=== PATIENT | male | born 1935 | race African-American/Black ===

== ENCOUNTER 2019-10-23 14:25 | Emergency (ER) | payer OTHER ==
[~2019-10-23] VITALS: Ht 172.7 cm; Wt 59.0 kg
[2019-10-23 22:34] VITALS: BP 149/97
== END 2019-10-23 22:35 | disposition short-term general hospital (02) ==
LOC: ER 14:25 → EDBD 14:25 → ER 22:35
DX: K94.23 Gastrostomy malfunction (principal); Z88.6 Allergy status to analgesic agent

== ENCOUNTER 2019-10-26 10:36 | Inpatient (IN) | payer OTHER ==
[~2019-10-26] VITALS: Ht 165.1 cm; Wt 62.6 kg
[2019-10-26] VITALS (31 sets, daily range): BP systolic 68–130; BP diastolic 29–50
[2019-10-26 11:18] LABS: ABSOLUTE NEUTROPHILS 4.1 thou/uL (1.4-8.2); WBC 5.3 thou/uL (4.0-11.0)
[2019-10-26 11:19] LABS: BASOPHILS 0.2 % (0.0-2.0); EOSINOPHILS 0.2 % (0.0-3.0); LYMPHOCYTES 9.9 % (24.0-44.0); MCH 30.9 pg (26.0-34.0); MCHC 31.7 g/dL (28.0-37.0); MCV 97.5 fL (80.0-100.0); MONOCYTES 11.4 % (1.0-8.0); PLATELET COUNT 302 thou/uL (150-400); POLYS 78.3 % (36.0-66.0); RBC 1.94 mil/uL (4.50-6.00); RDW 17.7 % (10.5-14.5)
[2019-10-26 11:23] LABS: HEMATOCRIT 18.9 % (42.0-52.0)
[2019-10-26 11:42] LABS: ANION GAP 4 mmol/L (7-16); BUN 21 mg/dL (7-18); CALCIUM 8.6 mg/dL (8.5-10.1); CHLORIDE 103 mmol/L (98-107); CO2 38 mmol/L (21-32); CREATININE 0.6 mg/dL (0.7-1.3); GLUCOSE 118 mg/dL (74-106); POTASSIUM 3.9 mmol/L (3.5-5.1); SODIUM 145 mmol/L (136-145)
[2019-10-26 11:50] LABS: ANISOCYTOSIS 1+; HYPOCHROMASIA 1+; POIKILOCYTOSIS SLIGHT; POLYCHROMASIA SLIGHT
[2019-10-26 11:52] LABS: ALBUMIN 2.1 g/dL (3.4-5.0); DIRECT BILIRUBIN 0.1 mg/dL (<0.1-0.2); SGOT 65 U/L (15-37); SGPT 109 U/L (30-65); TOTAL BILIRUBIN 0.3 mg/dL (0.2-1.0); TOTAL PROTEIN 6.3 g/dL (6.4-8.2); TROPONIN-I <0.06 ng/mL (<0.06)
--- NOTE | 2019-10-26 17:31 | NUR ---
PATIENT ADMITTED TO ICU THIS AFTERNOON, ON THE VENT PER TRACH. VITALS STABLE AND DENIES PAIN. PULM CONSULTED AND DR. BOSCH ON THE UNIT NOTIFIED. ADMISSION ASSESSMENT COMPLETED DOCUMENTED BEST DUE TO PATIENT BEING ABLE TO MOUTH WORDS AND WRITE ON DRY ERASE BOARD. PEG TUBE CLAMPED AND MALE EXTERNAL CATHETER IN PLACE AND PATENT. CARE PLAN ACTIVATED.
--- NOTE | 2019-10-26 21:39 | NUR ---
COVID 19 NEGATIVE TEST, THAT WAS SWABBED TODAY 10/25 AT APPROX 1600.
--- NOTE | 2019-10-26 21:51 | NUR ---
SPOKE WITH DR BOSCH REGARDING THE PATIENTS SLIGHT DISCOMFROT WITH THE VENT AND THE COVID NEGATIVE TEST.
--- NOTE | 2019-10-26 22:10 | NUR ---
HIRO ADVISED THAT IF THE PATIENT CONTINUES TO BE UNCOMFORTABLE ON THE VENT, THAT HE COULD USE CPAP MODE WITH A SETTING OF 10/8 50% FI02. MORPHINE GIVEN AT THIS TIME FOR HIS PAIN. HE IS RELAXING AT THIS TIME.
[2019-10-27] VITALS (61 sets, daily range): BP systolic 74–176; BP diastolic 30–80
[2019-10-27] MEDS ORDERED: ASA81BEC PO (01:43)
[2019-10-27] MEDS ORDERED: ENOXAPARIN30 MG/0.1 SUBQ (01:45)
[2019-10-27] MEDS ORDERED: UNICOMPLEX M TA1 TA1 PO (01:52)
[2019-10-27] MEDS ORDERED: LANSOPRAZOLE30 M2 PO (01:52)
[2019-10-27] MEDS ORDERED: CVS SENNA PLUS1 EACH PO (01:53)
[2019-10-27] MEDS ORDERED: SSD CREAM 1% 5050 GM TOP (01:55)
[2019-10-27] MEDS ORDERED: MAPAP500 MG PO (01:58)
[2019-10-27] MEDS ORDERED: VENTOLIN HFA INH8 GM INH (02:00)
--- NOTE | 2019-10-27 03:07 | NUR ---
HAS NEEDED ADDITIONAL SUCTIONING AND TRACH INNER CANNULA CHANGED TONIGHT. HE IS CURRENTLY KEEPING O2 SATS AT 97% ON FIO2 50% ON THE VENT. BLOOD PRESSURE LOW TONIGHT. 90'S OVER 30 'S AT THIS TIME. BOLUS IV FLUIDS INFUSING. HE IS AWARE OF THE PLAN FOR AN EGD TODAY SINCE HE IS COVID NEGATIVE.
[2019-10-27 04:07] LABS: MCH 32.6 pg (26.0-34.0); MCHC 32.3 g/dL (28.0-37.0); RBC 1.66 mil/uL (4.50-6.00); WBC 7.8 thou/uL (4.0-11.0)
[2019-10-27 04:20] LABS: CALCIUM 8.3 mg/dL (8.5-10.1); CREATININE 0.6 mg/dL (0.7-1.3); POTASSIUM 3.5 mmol/L (3.5-5.1); TOTAL BILIRUBIN 0.5 mg/dL (0.2-1.0); TOTAL PROTEIN 5.8 g/dL (6.4-8.2)
[2019-10-27 04:26] LABS: HEMATOCRIT 16.8 % (42.0-52.0); HEMOGLOBIN 5.4 gm/dL (14.0-18.0)
--- NOTE | 2019-10-27 07:27 | EKG ---
[facility] [place] [address] ELECTROCARDIOGRAM REPORT Name: STEPHENIE TENA Room #: 243-P ADM IN M.R.#: [id number] Admission: 10/26/19 Attend Phys: Chely Vega MD Discharge: Date of : 39 Report #: [id number] THIS REPORT FOR: cc: Wade Nettles MD, Christopher B. MD Lundgren, Craig H. MD [facility] ~ THIS REPORT FOR: //name// [facility] ED Test Date: 2019-10-26 Test Time: 11:57:58 Pat Name: STEPHENIE TENA Department: Room: [facility] Gender: M Editing Internship: [facility] : 1935 Requested By: Stephenie Justin Order Number: [id number] MD: Hitesh Duong Measurements Intervals [facility] Rate: 81 P: 60 PA: 121 QRS: -26 QRSD: 105 T: 83 QT: 371 QTc: 431 Interpretive Statements Sinus rhythm LVH with secondary repolarization abnormality Anterior ST elevation, possibly due to LVH No previous ECG available for comparison Electronically Signed On 10-27-2019 7:27:02 CDT by Hitesh Duong [email or web address] <ELECTRONICALLY SIGNED> By: Hitesh Duong MD, [facility] 10/27/19 0727 1157 1157 Hitesh Duong MD, [facility] /EPI
--- NOTE | 2019-10-27 08:53 | NUR ---
If no further bleed and tube feeds ready to start, recommend jevity 1.5 at 60ml/hr which is pts usual formula regimen. Na is 147, currently no IVF orders-consider start, defer to physician
--- NOTE | 2019-10-27 09:40 | NUR ---
WOUND CARE CONSULT; DUE TO COVID ISOLATION PROTOCOLS VIEWED WOUND PER PHOTO, DISCUSSED WOUND W/ ICU NURSE ROSAMARIA, HAD NOT SEEN WOUND YET THIS AM BUT STATES SACRAL DRSG IN PLACE, APPEARS SOME HEALING W/ WOUND? SCARING PRESENT, CENTER OF WOUND OPEN, UNABLE TO DETERMINE FROM PHOTO IF GRANULATION PRESENT? PT FROM [facility], PER OUMOU SANTOS W/ HEALIENT WOUND CARE THEY FOLLOW [facility] WOUND PTS, WILL CONSULT DR MCKINNEY/[place] HELP DESK TEAM LEADER AWARE
--- NOTE | 2019-10-27 10:44 | NUR ---
chart review. unable to visit with kamala. noted he on trach shield vent and peg tub. cm spoke with [facility] to see if he was [facility] or [facility]/skilled side. kamala was [facility]/skilled side and [facility] will need o get auth from [facility] to return to [facility]. updates to be sent and will cont following as needed for dc needs.
--- NOTE | 2019-10-27 16:15 | NUR ---
ON TRACH SHIELD @ 2 HRS. PT ANXIOUS, RESP RATE INCREASED, BP INCREASING, MAINTAINING HIS SA02. PER COLLABORATION WITH RESP THERAPY, PT PLACED BACK ON ASSIST CONTROL PER VENT. LARGE AMOUNT THICK ORAL SECRETIONS AND SMALL AMOUNT THICK SALIVA LIKE SECRETIONS PER TRACH, THEN RESTING COMFORTABLY. PC BLOOD INFUSION WELL TOLERATED. , DEVON CALLED TO INQUIRE REGARDING PT STATUS. UPDATED AND QUESTIONS ANSWERED TO HER SATISFACTION.
[2019-10-27 17:35] LABS: HEMATOCRIT 21.1 % (42.0-52.0)
--- NOTE | 2019-10-27 18:00 | NUR ---
PT DROWSY, OBTAINED BLOOD SUGAR-60. ADMINISTERED 1/2 AMP DEXTROSE PER ICU PROTOCOL. BLOOD SUGAR IMPROVED TO GREATER THAN 100. ALERT, RESTS COMFORTABLY WHEN UNDISTURBED, EASILY AWAKENED.
[2019-10-28] VITALS (32 sets, daily range): BP systolic 101–168; BP diastolic 36–109
--- NOTE | 2019-10-28 02:51 | NUR ---
PT REMAINED ON VENT ALL SHIFT. MODERATE AMOUNT OF TRACHEAL SECRETIONS SUCTIONED. PT IS ABLE TO USE YANKAUER INDEPEDENTLY FOR ORAL SUCTIONING. ORAL CARE PROVIDED. PT HAS BEEN AWAKE AND ALERT MOST OF THE NIGHT. HE IS ABLE TO MOUTH WORDS TO COMMUNICATE. HE USES CALL LIGHT APPROPRIATELY. NPO AND PEG TUBE CLAMPED FOR GI SCOPE TODAY. REPOSITIONED TO PREVENT FURTHER SKIN DAMAGE TO SCARAL WOUND. FALL PRECAUTIONS IN PLACE. PROGRESSING SLOWLY TOWARD POC GOALS. WILL CONTINUE TO MONITOR CLOSELY.
--- NOTE | 2019-10-28 07:48 | NUR ---
left message with Jessie Gambino, Infection Prevention regarding pt having covid-19 negative x 2 and requesting to remove from enhanced isolation.
--- NOTE | 2019-10-28 09:55 | NUR ---
DANIELLE PRATT STATED, "JIMMIE ([employer]) CALLED. ISOLATION IS DISCONTINUED".
[2019-10-28 10:35] LABS: ABSOLUTE NEUTROPHILS 3.8 thou/uL (1.4-8.2); BASOPHILS 0.2 % (0.0-2.0); EOSINOPHILS 0.5 % (0.0-3.0); HEMATOCRIT 24.5 % (42.0-52.0); HEMOGLOBIN 7.8 gm/dL (14.0-18.0); LYMPHOCYTES 16.2 % (24.0-44.0); MONOCYTES 9.8 % (1.0-8.0); PLATELET COUNT 369 thou/uL (150-400); POLYS 73.3 % (36.0-66.0); RBC 2.61 mil/uL (4.50-6.00); RDW 17.3 % (10.5-14.5); WBC 5.2 thou/uL (4.0-11.0)
[2019-10-28 10:38] LABS: MCV 93.7 fL (80.0-100.0)
[2019-10-28 10:43] LABS: BE(vivo) 8.1 mmol/L (-2 to +3); HCO3 35.1 mmol/L (22.0-26.0); PO2 70.5 mmHg (80.0-100.0); pH 7.347 (7.360-7.450); sO2 92.8 % (92.0-98.0)
[2019-10-28 10:44] LABS: PCO2 65.4 mmHg (35.0-45.0)
[2019-10-28 10:46] LABS: CALCIUM 8.8 mg/dL (8.5-10.1); CREATININE 0.6 mg/dL (0.7-1.3); POTASSIUM 3.2 mmol/L (3.5-5.1)
--- NOTE | 2019-10-28 10:50 | NUR ---
cpap trial results called to dr. perez. pt placed on trach shield by rt fina per dr. perez's order. tolerating well.
--- NOTE | 2019-10-28 12:06 | NUR ---
Pt remains in ICU. Spouse Ariella being updated by the bedside nurse. Dc materials planner to fax clinical updates to [facility]. They will reevaluate for SNF or LTAC bed pending his level of care at [facility]. Either way they will need new insurance auth.
--- NOTE | 2019-10-28 13:21 | NUR ---
PT IS FROM [facility] FAXED CLINICAL UPDATE SPOKE WITH DARRYN IN ADM HE RECEIVED UPDATE. DP TO FOLLOW.
--- NOTE | 2019-10-28 15:03 | NUR ---
DR. RUSH PRESENT ALONG WITH GI TEAM TO PERFORM EGD. PLACED ON ASSIST CONTROL ON VENT PER RT KENYON.
--- NOTE | 2019-10-28 15:53 | HC ---
[facility] [place] [address] CONSULTATION Name: STEPHENIE TENA Room #: 243-P ADM IN M.R.#: [id number] Admission: 10/26/19 Attend Phys: Chely Vega MD Discharge: Date of : 37 Report #: [id number] THIS REPORT FOR: cc: Wade Nettles MD,Emilio Deng MD, MD ~ CC: Wade Vega DATE OF SERVICE: 10/27/2019 WOUND CARE CONSULTATION PERSONAL PHYSICIAN: Stanley Nettles MD CHIEF COMPLAINT: Sacral decubitus ulcer. HISTORY OF PRESENT ILLNESS: This is an 83-year-old male who was admitted for GI bleed from [facility] long-term acute care. Upon admission, the patient was noted to have a large unstageable sacral decubitus ulcer, which prompted them to consult wound care for continued care while he was here in the hospital. The patient himself is a fairly poor historian, but states it appears per records that a sacral ulcer has been present for several weeks given the fact the patient is essentially bedridden from significant debility. The patient was noted at [facility] to have a hemoglobin of 5.6, which prompted them to transfer him to [facility] for further evaluation and workup. The GI group is seeing the patient as well as Pulmonary. The patient has a history of chronic respiratory failure and was currently on ventilator. Per records, the patient has no other associated wounds except for the sacral ulcer. 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 Chronic respiratory failure with trach placement. CURRENT MEDICATIONS: Multiple, I reviewed the patient's medication list. DRUG ALLERGIES: IBUPROFEN. SOCIAL HISTORY: The patient has a history of smoking. Denies alcohol use. Currently is in the long-term acute care hospital at [facility]. FAMILY HISTORY: Unobtainable given the fact the patient is sedated at this point in time on the ventilator. REVIEW OF SYSTEMS: Unobtainable given the fact the patient is sedated at this [facility] [address] [place] [address] CONSULTATION Name: STEPHENIE TENA Room #: 243-P [facility] IN M.R.#: [id number] Admission: 10/26/19 Attend Phys: Chely Vega MD Discharge: Date of : 37 Report #: [id number] point in time on the ventilator. PHYSICAL EXAMINATION: VITAL SIGNS: Temperature 37.1. Vital signs are stable. GENERAL: This is a sedated male who is currently on the ventilator, in no obvious distress. HEENT: Normocephalic, atraumatic. Mucous membranes are somewhat dry. NECK: The patient has a tracheostomy in place without excoriation. LUNGS: Slightly diminished breath sounds heard throughout with crackles. HEART: Regular. ABDOMEN: Soft, nontender. PEG tube is in place and appears to be functioning. EXTREMITIES: Evaluation of sacrococcygeal region reveals a large approximately 20 x 10 cm unstageable decubitus ulcer with eschar. There is moderate amount of serosanguineous drainage noted without significant odor. Luna wound is somewhat macerated. The patient has decreased movement of all extremities. Bilateral heels are intact. NEUROLOGIC: Cranial nerves 2-12 are grossly intact. Motor and sensory appear to be intact. LABORATORY DATA: White count 7.8, hemoglobin 5.4. BUN 17, creatinine 0.6, albumin 2.0. COVID-19 was negative. IMPRESSION: 1. Unstageable sacrococcygeal decubitus ulcer -- chronic. 2. Respiratory failure, on ventilator. 3. Dysphagia. 4. Anemia, most likely of GI origin. 5. Generalized debility with bedridden status. 6. Severe protein-calorie malnutrition, albumin 2.0. PLAN: We will start Dakin's wet to dry dressings to the sacral ulcer changes daily and p.r.n. We will put the patient on low air loss mattress, having turned every 2 hours. Pulmonary is managing the patient's respiratory status. GI is evaluating the patient for the anemia. We will try to maximize the patient's protein supplementation via his PEG tube. We will continue all other current medications at this time. I appreciate ability to consult. We will continue to follow the patient. <ELECTRONICALLY SIGNED> By: Emilio Benitez MD 10/28/19 1553 0930 1108 Emilio Benitez MD /nt
--- NOTE | 2019-10-28 23:37 | NUR ---
ASSUMED PT CARE AROUND 1900. VSS. AFEBRILE. PT HAD LARGE FORMED BOWEL MOVEMENT AT BEGINNING OF SHIFT. DRESSING CHANGED TO SACRAL WOUND. TF INFUSING VIA PEG TUBE. NO RESIDUALS. ORDERS TO TRANSFER PT OUT OF ICU. REPORT CALLED TO 2N RN AT 2335. PT AND ALL BELONGINGS TRANSFERED TO ROOM 217 AT 2315. 2324 - SPOKE WITH PT'S (RACHAEL). SHE WAS NOTIFIED OF PT TRANSFER OUT OF ICU TO ROOM 217. SHE WAS UPDATED ON PT STATUS. ALL QUESTIONS ANSWERED. PT IS PROGRESSING TOWARD POC GOALS.
[2019-10-29] VITALS (7 sets, daily range): BP systolic 102–145; BP diastolic 44–75
--- NOTE | 2019-10-29 05:44 | NUR ---
PT WAS A TRANSFER FROM ICU. PT HAS A TRACH AND IS ON A VENT. NO SIGN OF DISTRESS NOTED IN PT. VERBALIZES PAIN UPON ARRIVAL. REPOSITIONING. ASSESSMENT COMEPLETED AND DOCUMENTED. SCHEDULED MEDS ADMINISTERED TO PT. FALL PRECAUTION IN PLACE. POSSIBLE DISCHARGE TODAY. CONTINUE TO MONITOR, NO FURTHER NEEDS AT THIS TIME.
[2019-10-29 05:55] LABS: HEMATOCRIT 21.7 % (42.0-52.0); MCH 30.4 pg (26.0-34.0); MCHC 32.2 g/dL (28.0-37.0); MCV 94.5 fL (80.0-100.0); RBC 2.3 mil/uL (4.50-6.00); RDW 16.9 % (10.5-14.5); WBC 4.6 thou/uL (4.0-11.0)
[2019-10-29 06:07] LABS: CALCIUM 8.6 mg/dL (8.5-10.1); CREATININE 0.5 mg/dL (0.7-1.3); POTASSIUM 3.4 mmol/L (3.5-5.1)
--- NOTE | 2019-10-29 08:08 | P ---
[facility] [place] [address] PROCEDURE REPORT Name: STEPHENIE TENA Room #: 217-P ADM IN M.R.#: [id number] Admission: 10/26/19 Attend Phys: Chely Vega MD Discharge: Date of : 37 Report #: [id number] THIS REPORT FOR: cc: Wade Nettles MD,Octavio Viveros MD, MD ~ CC: Wade Vega DATE OF SERVICE: 10/28/2019 ICU BED: 243. TIME: 1500. PROCEDURE: Upper endoscopy. 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 Endoscopy was done at the bedside in the ICU. The patient has a trach and ventilator dependent. Anesthesia is monitored anesthesia care with propofol. DESCRIPTION OF PROCEDURE: The upper adult endoscope was introduced through the mouth, advanced through the esophagus, stomach into the second portion of the duodenum and withdrawn with careful inspection. There was no blood noted throughout the upper GI tract. The duodenum was normal. The stomach showed very mild antral gastritis and a previously placed PEG tube, a small hiatal hernia and a normal esophagus. Procedure was then aborted without any complications. No specimens were obtained. RECOMMENDATIONS: To continue monitoring serial hemoglobins and transfusing as needed. We will follow along with you. Consider testing stool for occult blood and restarting tube feeds at this time. <ELECTRONICALLY SIGNED> By: Octavio Escalante MD 10/29/19 0808 1515 [id number] Octavio Escalante MD /randal
--- NOTE | 2019-10-29 13:49 | NUR ---
Since there is feeding pump shortage, recommend change pt to bolus feeds via PEG of jevity 1.5, 1 carton 5x per day followed by 175ml water flush. Suggest discontinue IVF. Spoke with DANIELLE Webb for clarification.
--- NOTE | 2019-10-29 14:30 | NUR ---
PT CARE ASSUMED APPROX 0700. ASSESSMENTS CHARTED. PT DENIES SOA. REPORTS ADEQUATE PAIN MANAGEMENT OF SACRAL WOUND. VSS. TURNING PT Q2 HRS AND PRN. PT CARE BEING TRANSFERRED TO ANOTHER NURSE AT THIS TIME. RECENT CHANGES TO POC WILL BE HIGHLIGHTED. PT RECEIVING BLOOD WITHOUT ISSUE. NO DISTRESS NOTED.
--- NOTE | 2019-10-29 17:03 | NUR ---
ASSUMED CARE THIS AFTERNOON AT [facility] 1530. ASSESSMENT CHARTED - GIVEN MS X 1 DOSE FOR CO'S OF PAIN IM SACRUM AFTER DRESSING CHANGE COMPLETED. PAIN MED WITH GOOD RELIEF PATIENT SLEEPING. BOLUS FEEDDING GIVEN ORDERED - ADALBERTO WELL. PT TURNED. BLOOD TRANSFUSION COMPLETED ADALBERTO WELL. VSS POST TRANSFUSION. PT APPEARS TO BE RESTING COMFORTABLY AT THE PRESENT TIME.
[2019-10-30 03:51] VITALS: BP 128/52
--- NOTE | 2019-10-30 04:19 | NUR ---
Assumed pt care at 1900. Pt is alert and oriented, pt is soft spoken. Fall precaution in place. Trach/vent in place. Pt is stable. Assessment completed and documented. Bolus feeding done. Repositioning done. Pain med administered upon request. Continue to monitor pt. No acute events over night. Continue to monitor. No further needs at this time.
[2019-10-30 05:19] LABS: HEMATOCRIT 25.4 % (42.0-52.0); HEMOGLOBIN 8.2 gm/dL (14.0-18.0); MCHC 32.3 g/dL (28.0-37.0); MCV 92.9 fL (80.0-100.0); RBC 2.74 mil/uL (4.50-6.00); RDW 17.2 % (10.5-14.5); WBC 6.6 thou/uL (4.0-11.0)
[2019-10-30 08:01] VITALS: BP 140/62
--- NOTE | 2019-10-30 11:42 | NUR ---
Clinical updated faxed to [facility] this morning. They are working on ins auth for readmission. Pt could dc today if auth secured. He will need [facility] vent transport. Chart copy in progress. updated and she is agreeable to the dc plan. Care team updated. will need call back to confirm dc time if he is able to go today.
[2019-10-30 12:23] VITALS: BP 116/57
[2019-10-30 16:45] VITALS: BP 146/66
--- NOTE | 2019-10-30 17:59 | NUR ---
PT CARE ASSUMED APPROX 0700. ASSESSMENTS CHARTED. PT DENIES PAIN AND SOA. VSS. TURNING Q2 HRS AND PRN. CLINICAL UPDATES GIVEN TO PT'S SON AND SPOUSE. BOTH FAMILY MEMBERS AND PT DENY QUESTIONS OR CONCERNS REGARDING POC. PT TOLERATING POC. NO DISTRESS NOTED.
[2019-10-30 20:20] VITALS: BP 126/52
[2019-10-31 00:30] VITALS: BP 113/46
[2019-10-31 04:00] VITALS: BP 110/51
--- NOTE | 2019-10-31 04:59 | NUR ---
1900, PT ALERT AND ORIENTED. MAINTAINED ON THE VENT, VSS. C/O OF BACK PAIN, MORPHINE X1. PT RUNNING LOW GRADE FEVER OVERNIGHT. TYLENOL GIVEN. NO OTHER EVENTS. WILL CONTINUE TO MONITOR.
[2019-10-31 08:00] VITALS: BP 124/53
--- NOTE | 2019-10-31 10:16 | NUR ---
ASSUMED CARE OF PT AT SHIFT CHANGE,REPORTS OF LOW GRADE FEVER OVERNIGHT, ROOM AROUND 85 DEGREES AT THIS TIME, PT IS A&0X4 MOSTLY, IS NOT IMPULSIVE, USES CALL LIGHT FOR NEEDS. ASKED FOR PAIN MEDICATION FOR BACK PAIN. ASKS FOR TRACH SUCTIONING. APPROX [address]13 DR. OBSCH WANTED TRACH SHIELD AND UNCUFFED, CALL KATHLEEN WITH RT WHO ACKNOWLEDGES AND WILL HANDLE. ORDERS FOR JEVITY BOLUSES. NIGHT REPORTS MISSING 0000 BUT DID 0600. WILL ADM. SEE SEPARATE INTERVENTIONS FOR ASSESSMENTS.
[2019-10-31 12:00] VITALS: BP 137/58
[2019-10-31 17:00] VITALS: BP 127/58
[2019-10-31 20:40] VITALS: BP 123/50
[2019-11-01 04:40] VITALS: BP 132/49
--- NOTE | 2019-11-01 05:41 | NUR ---
ASSUMED PT CARE AT THE CHANGE OF SHIFT, AWAKE, ALERT AND ORIENTED, NONVERBAL, SR ON THE MONITOR, CONTINUES ON VENT, C/O BACK PAIN, PAIN MEDICATION GIVEN PRN, PT IS RESTING WELL NO DISTRESS NOTED, WILL CONTINUE TO MONITOR
[2019-11-01 08:21] VITALS: BP 120/50
[2019-11-01 11:47] VITALS: BP 152/69
[2019-11-01 17:08] VITALS: BP 123/48
--- NOTE | 2019-11-01 17:22 | NUR ---
ASSUMED CARE AT SHIFT CHANGE, NONVERBAL, AND ASSESSMENT DOCUMENTED. SUCTIONED MULTIPLE TIMES PER PATIENT REQUEST. ASSESSMENT CHARTED AND WILL CONTINUE WITH POC.
[2019-11-01 19:11] VITALS: BP 134/59
[2019-11-02] VITALS (8 sets, daily range): BP systolic 125–166; BP diastolic 51–70
[2019-11-02 05:28] LABS: HEMATOCRIT 24.3 % (42.0-52.0); HEMOGLOBIN 7.9 gm/dL (14.0-18.0); MCH 29.7 pg (26.0-34.0); MCHC 32.5 g/dL (28.0-37.0); MCV 91.4 fL (80.0-100.0); RBC 2.66 mil/uL (4.50-6.00); RDW 15.2 % (10.5-14.5); WBC 9.3 thou/uL (4.0-11.0)
--- NOTE | 2019-11-02 05:33 | NUR ---
PT IS ALERT AND ORIENTED . MOUTHS WORDS ON THE VENT. WATCHING TV THIS AM . WOUND CARE DONE TO COCCYX WOUND. DAKINS. PAIN MEDS GIVEN FOR COMFORT. APPEARS RELAXED AND CALM AFTER MEDICATION. LUNGS ARE CORSE TO DIMINISHED. PT USES LUI IN HIS HAND TO SUCK WHITE THICK SECREATIONS OCCASIONAL. SINUS RHYTHM ON THE AIRPORT RAMP AGENT. TURN Q2 HOURS. AND REPOSTIONING FOR COMFORT. CALLL LIGHT WITHIN REACH IF NEEDS ASSISTANCE.
[2019-11-02 05:41] LABS: ALBUMIN 1.5 g/dL (3.4-5.0); DIRECT BILIRUBIN 0.1 mg/dL (<0.1-0.2); TOTAL BILIRUBIN 0.4 mg/dL (0.2-1.0); TOTAL PROTEIN 5.4 g/dL (6.4-8.2)
--- NOTE | 2019-11-02 11:10 | NUR ---
spoke with shelli aranda this am and they are needing updated progress notes that insurance requests. DC neighborhood planner faxing this am.
--- NOTE | 2019-11-02 11:12 | NUR ---
FAXED CLINICAL UPDATE TO [facility] SPOKE WITH FRANCISCO TILLMAN SHE RECEIVED UPDATE AND WILL SUBMIT THEM FOR AUTH. SELINA TO FOLLOW.
--- NOTE | 2019-11-02 15:12 | NUR ---
Nutrition: Pt receiving adequate fluids with water boluses. REC D/C maintenance IVFs.
--- NOTE | 2019-11-02 20:44 | NUR ---
PT CARE ASSUMED AT 0700. ASSESSMENTS CHARTED. MEDICATION CHARTED. PT CAPABLE OF MOUTHING WORDS. VENT VIA TS. WOUND CARE PERFORMED. BM 11/02/19. FABIAN VIA [place] [facility].
--- NOTE | 2019-11-03 04:49 | NUR ---
Assumed pt care. Pt is alert and oriented, Trached and on vent. Pt is soft spoken. No sign of distress noted. Pt is nonambulatory. Pt is stable. Assessment completed and documented. Repositioning done, Bolus feeding given to pt. Pain med administered to pt. No acute events overnight. Waiting on discharge. No further needs at this time.
[2019-11-03 05:48] VITALS: BP 156/57
[2019-11-03 08:20] VITALS: BP 139/51
[2019-11-03 08:23] VITALS: BP 139/51
--- NOTE | 2019-11-03 10:18 | NUR ---
PT DISCHARGING TODAY TO [facility] FAXED DC ORDERS/SUMMARY SPOKE WITH MEIR IN ADM SHE RECEIVED ORDERS AND TRANSPORTATION ARRANGED BY AMBULANCE ([facility]) FOR 8020-0117. PT TO NOTIFY HER SONS AND DP NOTIFIED PT'S (DEVON). UNIT NOTIFIED AND CHART COPY PER US. RN TO CALL REPORT TO [phone].
--- NOTE | 2019-11-03 10:28 | NUR ---
PT DISCHARGING TODAY TO [facility] FAXED DC ORDERS/SUMMARY TO FACILITY SPOKE WITH MEIR IN ADM SHE RECEIVED ORDERS AND TRANSPORT ARRANGED BY AMBULANCE ([facility]) TO RN ANESTHETIST 0925-1552 TODAY. NOTIFIED PT'S (DEVON) OF DC AND TIME OF TRANSPORT. UNIT NOTIFIED AND CHART COPY PER US. RN TO CALL REPORT TO [phone].
[2019-11-03 11:55] VITALS: BP 139/51
== END 2019-11-03 12:33 | DRG 207 ==
LOC: ER 10:36 → ICU 14:15 → EROBS 14:15 → ICU 15:15 → 2N 10-28 23:15
PROVIDERS: Emergency Medicine; Hospitalist; Nurse Practitioner; Specialist; ADMIT Internal Medicine; ATTEND Internal Medicine
PROC: 5A1955Z Respiratory Ventilation, Greater than 96 Consecutive Hours (ICD-10-PCS; principal; 2019-10-26)
PROC: 0DJ08ZZ Inspection of Upper Intestinal Tract, Via Natural or Artificial Opening Endoscopic (ICD-10-PCS; 2019-10-28)
PROC: 30233N1 Transfusion of Nonautologous Red Blood Cells into Peripheral Vein, Percutaneous Approach (ICD-10-PCS; 2019-10-29)
DX: J96.21 Acute and chronic respiratory failure with hypoxia (principal); E43 Unspecified severe protein-calorie malnutrition; K29.61 Other gastritis with bleeding; J91.8 Pleural effusion in other conditions classified elsewhere; J96.10 Chronic respiratory failure, unspecified whether with hypoxia or hypercapnia; D50.0 Iron deficiency anemia secondary to blood loss (chronic); L89.150 Pressure ulcer of sacral region, unstageable; R13.10 Dysphagia, unspecified; K44.9 Diaphragmatic hernia without obstruction or gangrene; J44.9 Chronic obstructive pulmonary disease, unspecified; K59.00 Constipation, unspecified; G47.00 Insomnia, unspecified; M62.84 Sarcopenia; Z20.828 Contact with and (suspected) exposure to other viral communicable diseases; Z85.46 Personal history of malignant neoplasm of prostate; Z88.6 Allergy status to analgesic agent; Z87.891 Personal history of nicotine dependence; Z92.3 Personal history of irradiation; Z93.1 Gastrostomy status; Z79.82 Long term (current) use of aspirin; Z79.899 Other long term (current) drug therapy; Z68.27 Body mass index [BMI] 27.0-27.9, adult; Z93.0 Tracheostomy status
CPT/HCPCS: 10078; 10081; 62110; 62900